=== PATIENT | male | born 1955 | race Caucasian/White ===

== ENCOUNTER 2018-04-19 16:50 | Inpatient (IN) ==
[2018-04-19] MEDS ORDERED: Sod Chloride 0.9% Inj 1,000 ML IV.CONT SCH (21:15)
--- NOTE | 2018-04-19 21:20 | ED ---
HPI General Chief complaint: Weakness Stated complaint: L arm/leg weakness Time Seen by Provider: 04/19/18 21:09 Source: patient Mode of arrival: ambulatory Limitations: no limitations History of Present Illness HPI narrative: The patient is a 62 year old male who presents to the [facility] emergency department with a history of reportedly developing intermittent left-sided weakness since March 17. He reports that he was admitted to the [facility] for evaluation and treatment. He reports that he underwent CT scans as well as MRIs of the head and neck. He reports that he was told that he did not have a stroke, however he reports that in January when he was experiencing vision changes and spots before his eyes he was also admitted to that facility and had an MRI done that showed an older stroke. The patient reports that he had been taking an aspirin daily and this was switched to Plavix on March 17. He was told that he would need to follow- up with a neurologist as an outpatient for further evaluation, however he reports that he does not have insurance and has not been able to get an appointment. He reports that he is followed by pending sale to [facility] and the physician and nurse through them. He reports that they were attempting to arrange outpatient follow-up with a neurologist, however today they recommended that he follow-up at another emergency department for a second opinion regarding his symptoms. The patient reports that 2 days after being discharged from the hospital, on approximately March 19 he began to have constant left upper and left lower extremity weakness associated with numbness and tingling. The patient reports that he does have a history of hypertension, hyperlipidemia , prior history of stroke without residual symptoms, and diabetes mellitus. His primary care physician is Dr. Hester. The patient's only other new symptom recently has been a tingling sensation in the left side of his chest that at times ago and has been coming and going. He denies having any chest pain or chest pressure. He denies having any shortness of breath. He denies any prior history of irregular heartbeat. He reports that he has had intermittent loose stools, however he reports that this began after he started metformin 6 months ago. On review of systems otherwise, the patient denies having any congestion, neck pain, abdominal pain, vomiting, urinary symptoms, double vision, vertigo, facial droop, difficulty with word finding ability, or other new weakness. Related Data Home Medications Medication Instructions Recorded Confirmed atorvastatin 40 mg PO DAILY 04/19/18 04/19/18 carvedilol 6.25 mg PO BID 04/19/18 04/19/18 clopidogrel [Plavix] 75 mg PO DAILY 04/19/18 04/19/18 glipizide 5 mg PO BID 04/19/18 04/19/18 lisinopril 40 mg PO DAILY 04/19/18 04/19/18 metformin 1,000 mg PO BID 04/19/18 04/19/18 Allergies Allergy/AdvReac Type Severity Reaction Status Date / Time No Known Allergies Allergy Verified 04/19/18 17:03 Review of Systems ROS: all other systems reviewed are negative PMFSH Social History Social History Substance History: No History of Abuse Smoking Status: Former smoker Smoking End Date: 20 years ago How Often Do You Have a Drink Containing Alcohol: 2 to 4 times a month Recent Travel in [facility] within the Last 8 Weeks: No Recent Out of Country Travel within the Last 8 Weeks: No Exam Const General: cooperative, no acute distress and well developed Nutritional Appearance: well nourished Orientation: alert, awake and oriented x3 HENMT Head: normocephalic and atraumatic Nose: no nasal discharge and no epistaxis Mouth: moist mucous membranes Teeth and gingiva: other (Patient has been poor dentition, multiple missing teeth) Throat: posterior oropharynx normal and uvula midline Eyes Sclera: normal sclerae Pupils: PERRL Neck Neck: no meningeal signs, trachea midline and no JVD Resp Effort & Inspection: no use of accessory muscles Auscultation: clear to auscultation bilaterally Cardio Rate: regular rate Rhythm: regular rhythm Heart Sounds: no murmurs GI Inspection: non-distended Palpation: soft, no hepatosplenomegaly, no guarding, not rigid and nontender Auscultation: normal bowel sounds Back/Spine/Pelvis Back: no CVA tenderness Skin General: dry skin (warm) Neuro General: alert, awake and oriented x3 Cranial Nerves: CN's II-XI intact bilaterally Speech: speech normal Motor: no movement abnormalities noted and strength abnormal (Strength is 5/5 in the right upper and right lower extremity, strength is 4/5 in the left upper and left lower extremity.) Sensory Exam: other (The patient reports having diminished sensation in the left upper and left lower extremity on examination compared to the right.) Extrem General: normal to inspection (2+ pulses in all 4 extremities), no calf tenderness, no clubbing, no cyanosis and no edema Psych Mood: congruent mood Affect: normal affect Judgment: judgment good Course Consultations Consultation #1: The patient's case including history, pertinent physical examination findings, and laboratory studies were discussed with Dr. Mojica, the neurologist. It was agreed that the patient would be admitted to the hospitalist service. He recommended that the patient be switched from Plavix to Aggrenox. Time: 23:37 Initial Documented Vital Signs Temperature 97.9 F 04/19/18 17:00 Pulse Rate 67 04/19/18 17:00 Respiratory Rate 18 04/19/18 17:00 Blood Pressure 223/116 H 04/19/18 17:00 Pulse Oximetry 99 04/19/18 17:00 Last Documented Vital Signs Temperature 97.9 F 04/19/18 17:00 Pulse Rate 83 04/19/18 21:28 Respiratory Rate 18 04/19/18 21:18 Blood Pressure 216/106 H 04/19/18 21:28 Pulse Oximetry 99 04/19/18 17:00 Medical Decision Making MDM Narrative Medical decision making narrative: During the course of the patient's emergency department visit, the patient's history, examination, and differential diagnosis were reviewed with the patient. The patient was placed on a cardiac tech with oximetry and frequent blood pressure monitoring. The patient had IV access obtained and blood work sent for analysis. Diagnostic evaluation was started regarding this patient's left upper and left lower extremity weakness associated with numbness and tingling to the left upper and left lower extremity. The patient was initially provided normal saline at 70 mL/h. CT scan of the brain has been ordered to rule out hemorrhage, however an MRI has also been ordered to evaluate for possible underlying stroke. The patient does not meet criteria for an acute stroke alert due to the onset of symptoms being 2-3 weeks ago. The patient was noted to be hypertensive on arrival with a blood pressure on repeat evaluation that was repeatedly sustained around 216/106. Due to the concern for possible stroke, the patient will be given antihypertensive medications. Labetalol is on back order at this facility, therefore a Cardene drip was started to gently lower the patient's blood pressure less than 185/110. The patient's diagnostic evaluations are remarkable for a white count of 10.6, hemoglobin 12.8, platelets 299 with eosinophils 4.5, PT 11.2, PTT is 25.9, chemistries remarkable for BUN of 28, GFR 64, glucose 165, AST is 11, cardiac enzymes within normal limits. Chest x-ray shows no acute cardiopulmonary disease, CT scan of the brain shows no acute intracranial abnormality. MRI of the brain without contrast revealed a lacunar infarct in the right brainstem, right maxillary sinus disease. The patient's case was discussed with Dr. Mojica, the neurologist senior environmental engineer who recommended that the patient have his Plavix discontinued and instead be started on Aggrenox. The patient's case including history, pertinent physical examination findings, and laboratory studies were discussed with Dr. Nichols. It was agreed that the patient would be admitted to the hospitalist service. The patient's results were discussed with the patient, including the plan of care. I explained that further testing and/ or monitoring is indicated based on the patient's history, examination, and/ or laboratory findings. Therefore, I recommended admission for additional evaluation. The patient expressed understanding and was agreeable with this plan. The patient was admitted to the hospital in guarded condition and sent to a bed under the care of the [facility] service. Medical Screen Exam Complete: Yes Emergency Medical Condition: Yes Differential Diagnosis Differential Diagnosis: Ischemic stroke, versus hemorrhagic stroke, versus other neurologic disorders such as multiple sclerosis, Lyme disease Medical Records Medical records reviewed: Yes I reviewed the patient's medical records. Lab Data Lab results reviewed: Yes I reviewed the patient's lab results. Result diagrams: 04/19/18 21:20 04/19/18 21:20 Lab Results 04/19/18 04/19/18 04/19/18 Range/Units 21:20 21:20 21:20 WBC 10.6 (4.0-11.0) th/mm3 RBC 4.57 (4.50-5.90) mil/mm3 Hgb 12.8 L (13.0-17.0) gm/dL Hct 37.1 L (39.0-51.0) % MCV 81.3 (80.0-100.0) fL MCH 28.0 (27.0-34.0) pg MCHC 34.4 (32.0-36.0) % RDW 14.9 (11.6-17.2) % Plt Count 299 (150-450) th/mm3 MPV 8.7 (7.0-11.0) fL Neut % (Auto) 55.9 (16.0-70.0) % Lymph % (Auto) 30.1 (9.0-44.0) % [place] % (Auto) 7.4 (0.0-8.0) % Eos % (Auto) 4.5 H (0.0-4.0) % Baso % (Auto) 2.1 H (0.0-2.0) % Neut # (Auto) 5.9 (1.8-7.7) th/mm3 Lymph # (Auto) 3.2 (1.0-4.8) th/mm3 [place] # (Auto) 0.8 (0.0-0.9) th/mm3 Eos # (Auto) 0.5 H (0.0-0.4) th/mm3 Baso # (Auto) 0.2 (0.0-0.2) th/mm3 WBC Differential . Differential Comment Auto diff final PT 11.2 (9.8-11.6) sec INR 1.1 Ratio APTT 25.9 (23.4-31.7) sec Sodium 137 (136-145) meq/L Potassium 4.4 (3.5-5.1) meq/L Chloride 102 (98-107) meq/L Carbon Dioxide 28.8 (21.0-32.0) meq/L Anion Gap 6 (5-15) meq/L BUN 28 H (7-18) mg/dL Creatinine 1.16 (0.60-1.30) mg/dL Estimated GFR 64 L (>89) mL/min POC Glucose (68-110) mg/dl Random Glucose 165 H (74-106) mg/dL Calcium 8.8 (8.5-10.1) mg/dL Total Bilirubin 0.3 (0.2-1.0) mg/dL AST 11 L (15-37) U/L ALT 19 (12-78) U/L Alkaline Phosphatase 66 (45-117) U/L Total Creatine Kinase (39-308) U/L Troponin I (0.02-0.05) ng/mL Total Protein 8.0 (6.4-8.2) g/dL Albumin 3.5 (3.4-5.0) g/dL 04/19/18 04/19/18 Range/Units 21:20 21:22 WBC (4.0-11.0) th/mm3 RBC (4.50-5.90) mil/mm3 Hgb (13.0-17.0) gm/dL Hct (39.0-51.0) % MCV (80.0-100.0) fL MCH (27.0-34.0) pg MCHC (32.0-36.0) % RDW (11.6-17.2) % Plt Count (150-450) th/mm3 MPV (7.0-11.0) fL Neut % (Auto) (16.0-70.0) % Lymph % (Auto) (9.0-44.0) % [place] % (Auto) (0.0-8.0) % Eos % (Auto) (0.0-4.0) % Baso % (Auto) (0.0-2.0) % Neut # (Auto) (1.8-7.7) th/mm3 Lymph # (Auto) (1.0-4.8) th/mm3 [place] # (Auto) (0.0-0.9) th/mm3 Eos # (Auto) (0.0-0.4) th/mm3 Baso # (Auto) (0.0-0.2) th/mm3 WBC Differential Differential Comment PT (9.8-11.6) sec INR Ratio APTT (23.4-31.7) sec Sodium (136-145) meq/L Potassium (3.5-5.1) meq/L Chloride (98-107) meq/L Carbon Dioxide (21.0-32.0) meq/L Anion Gap (5-15) meq/L BUN (7-18) mg/dL Creatinine (0.60-1.30) mg/dL Estimated GFR (>89) mL/min POC Glucose 154 H (68-110) mg/dl Random Glucose (74-106) mg/dL Calcium (8.5-10.1) mg/dL Total Bilirubin (0.2-1.0) mg/dL AST (15-37) U/L ALT (12-78) U/L Alkaline Phosphatase (45-117) U/L Total Creatine Kinase 93 (39-308) U/L Troponin I Less than 0.02 L (0.02-0.05) ng/mL Total Protein (6.4-8.2) g/dL Albumin (3.4-5.0) g/dL Imaging Data Attestation: I personally reviewed and interpreted this imaging study as follows : Radiologist's impression: Head MRI 04/19/18 21:09 CONCLUSION: 1. Lacunar infarct right brainstem. 2. Right maxillary sinus disease. Chest X-Ray 04/19/18 21:10 CONCLUSION: No acute cardiopulmonary disease Head CT 04/19/18 21:10 CONCLUSION: 1. No acute intracranial abnormality . ECG Data Attestation: I personally reviewed and interpreted this ECG as follows: Interpretation: The patient had an EKG done on arrival. The patient's EKG reveals a sinus rhythm heart rate of 70, QRS duration 97 ms, QTC 406 ms, no acute ST segment elevation. T waves are inverted in V1. Discharge Plan Discharge Disposition Patient Disposition: ED Admit(ED Internal Use Only) Discharge Order Discharge Orders: ED Use Only Admit Order (Routine); Ordered 04/19/18 Ordered By: Miriam Hector Discharge Details Diagnosis: Brainstem infarction Physicians Team ED Provider: Miriam Hector Primary Care Provider: Yobany Hester Rxs /Orders / Referrals /Forms Prescriptions: No Action atorvastatin 40 mg Tablet 40 mg PO DAILY RF: 0 carvedilol 6.25 mg Tablet 6.25 mg PO BID RF: 0 clopidogrel [Plavix] 75 mg Tablet 75 mg PO DAILY RF: 0 metformin 1,000 mg Tablet 1,000 mg PO BID RF: 0 lisinopril 40 mg Tablet 40 mg PO DAILY RF: 0 glipizide 5 mg Tablet 5 mg PO BID RF: 0 Status ED Status: In Room
[2018-04-19 21:29] LABS: Baso # (Auto) 0.2 th/mm3 (0.0-0.2); Baso % (Auto) 2.1 % (0.0-2.0); Eos # (Auto) 0.5 th/mm3 (0.0-0.4); Eos % (Auto) 4.5 % (0.0-4.0); Hematocrit 37.1 % (39.0-51.0); Hemoglobin 12.8 gm/dL (13.0-17.0); Lymph # (Auto) 3.2 th/mm3 (1.0-4.8); Lymph % (Auto) 30.1 % (9.0-44.0); Mean Corpuscular HGB Conc 34.4 % (32.0-36.0); Mean Corpuscular Volume 81.3 fL (80.0-100.0); Mean Platelet Volume 8.7 fL (7.0-11.0); Mono # (Auto) 0.8 th/mm3 (0.0-0.9); Mono % (Auto) 7.4 % (0.0-8.0); Neut # (Auto) 5.9 th/mm3 (1.8-7.7); Neut % (Auto) 55.9 % (16.0-70.0); Platelet Count 299 th/mm3 (150-450); Red Blood Count 4.57 mil/mm3 (4.50-5.90); Red Cell Distribution Width 14.9 % (11.6-17.2); White Blood Count 10.6 th/mm3 (4.0-11.0)
[2018-04-19] MEDS ORDERED: niCARdipine Inj 25 MG in Sodium Chlor 0.9% Inj 240 ML IV.CONT PRN (21:29)
--- NOTE | 2018-04-19 21:38 | XR ---
EXAM DATE: 04/19/2018 9:35 PM EST AGE/SEX: 62 years / Male INDICATIONS: Cough, left arm and leg numbness. CLINICAL DATA: This is the patient's initial encounter. Patient reports that signs and symptoms have been present for 1 day and indicates a pain score of 0/10. MEDICAL/SURGICAL HISTORY: Hypertension. None. COMPARISON: No prior exams available for comparison. FINDINGS: A single AP view of the chest demonstrates the lungs to be symmetrically aerated without evidence of mass, infiltrate or effusion. The cardiomediastinal contours are unremarkable. Osseous structures a re intact. CONCLUSION: No acute cardiopulmonary disease Electronically signed by: Thiago Griffin MD 04/19/2018 9:36 PM EST
[2018-04-19 21:39] LABS: Activated Partial Thrombo Time 25.9 sec (23.4-31.7); INR 1.1 Ratio; Prothrombin Time 11.2 sec (9.8-11.6)
[2018-04-19 22:00] LABS: Alanine Aminotransferase 19 U/L (12-78); Albumin 3.5 g/dL (3.4-5.0); Anion Gap 6 meq/L (5-15); Aspartate Aminotransferase 11 U/L (15-37); Blood Urea Nitrogen 28 mg/dL (7-18); Calcium 8.8 mg/dL (8.5-10.1); Carbon Dioxide 28.8 meq/L (21.0-32.0); Chloride 102 meq/L (98-107); Glomerular Filtration Rate 64 mL/min (>89); Glucose,Random 165 mg/dL (74-106); Potassium 4.4 meq/L (3.5-5.1); Sodium 137 meq/L (136-145)
--- NOTE | 2018-04-19 22:01 | CT ---
EXAM DATE: 04/19/2018 9:58 PM EST AGE/SEX: 62 years / Male INDICATIONS: Left side weakness, tingling in left hand and foot. CLINICAL DATA: This is the patient's initial encounter. Patient reports that signs and symptoms have been present for 1 month and indicates a pain score of 0/10. MEDICAL/SURGICAL HISTORY: Hypertension. Diabetes. None. RADIATION DOSE: 49.54 CTDI (mGy) COMPARISON: No prior exams available for comparison. TECHNIQUE: CT of the head without contrast. Using automated exposure control and adjustment of the mA and/or kV according to patient size, radiation dose was kept as low as reasonably achievable to ob tain optimal diagnostic quality images. DICOM format image data is available electronically for revi ew and comparison. FINDINGS: Cerebrum: The ventricles are normal for age. No evidence of midline shift, mass lesion, hemorrhage or acute infarction. No extraaxial fluid collections are seen. Posterior Fossa: The cerebellum and brainstem are intact. The 4th ventricle is midline. The cerebe llopontine angle is unremarkable. Extracranial: The visualized portion of the orbits is intact. Skull: The calvaria is intact. No evidence of skull fracture. CONCLUSION: 1. No acute intracranial abnormality . Electronically signed by: Thiago Griffin MD 04/19/2018 10:00 PM EST
[2018-04-19 22:03] LABS: Alkaline Phosphatase 66 U/L (45-117)
[2018-04-19 22:07] LABS: Creatine Kinase 93 U/L (39-308)
--- NOTE | 2018-04-19 22:37 | MR ---
EXAM DATE: 04/19/2018 10:32 PM EST AGE/SEX: 62 years / Male INDICATIONS: CVA. Left side weakness. CLINICAL DATA: This is the patient's initial encounter. Patient reports that signs and symptoms have been present for 1 day and indicates a pain score of 0/10. MEDICAL/SURGICAL HISTORY: Diabetes mellitus type II. Hypertension. . Bilateral lower extremity veins. COMPARISON: [facility], CT HEAD W/O CONTRAST, 04/19/2018. . TECHNIQUE: Multiplanar, multisequence examination of the brain was performed without contrast. FINDINGS: Cerebrum: The ventricles are normal for age. No evidence of midline shift, mass lesion, hemorrhage or acute infarction. No extraaxial fluid collections are seen. The pituitary gland and suprasellar cistern are normal in configuration. White Matter: No significant signal abnormalities are seen in the white matter. Posterior Fossa: The cerebellum is intact. Focal area of high FLAIR abnormality in the right brainste m The 4th ventricle is midline. The cerebellopontine angle is unremarkable. The cerebellar tonsils are normal in position. Diffusion Imaging: Punctate restricted diffusion seen in the right brainstem consistent with acute i schemia. Extracranial: The visualized portions of the orbits and paranasal sinuses are unremarkable. CONCLUSION: 1. Lacunar infarct right brainstem. 2. Right maxillary sinus disease. Electronically signed by: Thiago Griffin MD 04/19/2018 10:36 PM EST
[2018-04-19] MEDS ORDERED: Dextrose 50% in Water 50 ML Vial IV.PUSH PRN (23:49)
[2018-04-20] MEDS: Enoxaparin Inj 40 MG/0.4 ML Syringe SQ SCH ×2 (00:18→00:51)
[2018-04-20 06:47] LABS: Chol/HDL Ratio 5.43 Ratio; HDL Cholesterol 32.4 mg/dL (40.0-60.0)
--- NOTE | 2018-04-20 09:39 | US ---
EXAM DATE: 04/20/2018 9:31 AM EST AGE/SEX: 62 years / Male INDICATIONS: Lacunar infarct right brainstem. Left side weakness. CLINICAL DATA: This is the patient's initial encounter. Patient reports that signs and symptoms have been present for 1 month and indicates a pain score of 0/10. MEDICAL/SURGICAL HISTORY: Diabetes. Hypertension. Hyperlipidemia. Stroke. Plavix therapy. . COMPARISON: No prior exams available for comparison. VELOCITY PARAMETERS: ICA/CCA Ratio: Right 0.9 , Left 1.4 ICA: Right 75 cm/sec, Left 82 cm/sec CCA: Right 80 cm/sec, Left 58 cm/sec ECA: Right 90 cm/sec, Left 144 cm/sec Vertebral: Right 47 cm/sec antegrade, Left 33 cm/sec antegrade FINDINGS: Right Carotid: No significant plaque is visualized.The waveforms are within normal limits. Left Carotid: No significant plaque is visualized. The waveforms are within normal limits. Other: None. CONCLUSION: Negative for hemodynamically significant carotid stenosis Electronically signed by: Micky Mak MD 04/20/2018 9:38 AM EST
[2018-04-20] MEDS ORDERED: Gadobutrol PF 10 MMOL/10 ML Vial (for RAD) IV.SIG ONE (10:15)
[2018-04-20] MEDS ORDERED: Dextrose 50% in Water 50 ML Vial IV.PUSH PRN (10:27)
--- NOTE | 2018-04-20 10:28 | P.HPIM ---
History of Present Illness Service: Hospitalist Primary Care Physician: Yobany Hester History of Present Illness: Mr. Kent is a pleasant 62-year-old male with a history of diabetes mellitus, hypertension who presents to the emergency department due to left-sided upper and lower extremity weakness as well as left- sided chest tingling sensation. On March 14, patient started having left upper and lower extremity weakness which lasted about 1 hour. He had off-and- on symptoms for couple of days and then he started having persistent left upper and lower extremity weakness. He went to [facility] where he underwent imaging studies which apparently did not show any acute stroke. He was discharged on Plavix but patient reports that he has not been taking Plavix regularly. 2 days prior to this admission, patient also started having some left chest tingling sensation as well as persistent left upper and lower extremity weakness. His left-sided weakness did not get any worse but remained somewhat stable. Is able to walk but drags his left foot. He denies any abdominal pain, fever or chills. No cough. No changes in bowel or bladder habits. Past medical history: Hypertension, diabetes mellitus Past surgical history: Varicose vein surgery of the left leg Social history: Drinks alcohol occasionally. Denies using tobacco or illicit drugs Family history: Father likely had a stroke and mother with diabetes mellitus and hypertension. Inpatient Certification Inpatient Certification: I certify that the inpatient services were ordered in accordance with Medicare regulations governing the order. This includes certification that hospital inpatient services are reasonable and necessary and in the case of services not specified as inpatient-only under 42 CFR 419.22(n), that they are appropriately provided as inpatient services in accordance to with the 2-midnight benchmark under 43 CFR 412.3(e) Estimated Total Length of Stay (Days): 2 Plans for Post Hospital Care: Home Review of Systems Review of Systems: all other systems reviewed are negative [facility] Social History Social History Substance History: No History of Abuse Second Hand Smoke Exposure: No Smoking Status: Former smoker Tobacco Type: Cigarettes Smoking End Date: 20 years ago How Often Do You Have a Drink Containing Alcohol: 2 to 4 times a month Recent Travel in [facility] within the Last 8 Weeks: No Recent Out of Country Travel within the Last 8 Weeks: No Immunization History Tetanus Immunization: Unsure Hx Influenza Vaccine This Season: No Medications and Allergies Allergies Allergy/AdvReac Type Severity Reaction Status Date / Time No Known Allergies Allergy Verified 04/19/18 17:03 Home Medications Medication Instructions Recorded Confirmed Type atorvastatin 40 mg PO DAILY 04/19/18 04/19/18 History carvedilol 6.25 mg PO BID 04/19/18 04/19/18 History clopidogrel [Plavix] 75 mg PO DAILY 04/19/18 04/19/18 History glipizide 5 mg PO BID 04/19/18 04/19/18 History lisinopril 40 mg PO DAILY 04/19/18 04/19/18 History metformin 1,000 mg PO BID 04/19/18 04/19/18 History Active Medications: Active Medications Dextrose (D50w Vial) 50 ml IV.PUSH UNSCH PRN PRN Reason: PER HYPOGLYCEMIA PROTOCOL Dipyridamole/Aspirin (Aggrenox) 1 cap PO BID [facility] Last Admin: 04/20/18 08:46 Dose: 1 cap Enalaprilat (Vasotec Inj) 1.25 mg IV.PUSH Q4H PRN PRN Reason: For SBP > 220 or DBP > 120 Glucagon (Glucagon Inj) 1 mg OTHER UNSCH PRN PRN Reason: for Hypoglycemia Protocol Sodium Chloride (Ns Inj) 1,000 mls @ 70 mls/hr IV.CONT .[id number] [facility] Stop: 04/20/18 11:32 Last Admin: 04/20/18 02:17 Dose: 70 mls/hr Nicardipine HCl 25 mg/ Sodium (Chloride) 250 mls @ 50 mls/hr IV.CONT TITRATE PRN; Protocol PRN Reason: Per Protocol Last Titration: 04/20/18 00:40 Dose: 0 mg/hr, 0 mls/hr Sodium Chloride (Ns Flush) 2 ml IV.FLUSH BID [facility] Last Admin: 04/20/18 08:47 Dose: 2 ml Sodium Chloride (Ns Flush) 2 ml IV.FLUSH PRN PRN PRN Reason: FLUSH AFTER USING IV ACCESS Physical Exam Vital signs: Last Vital Signs Temp 98.0 F 04/20/18 08:00 Pulse 67 04/20/18 10:00 Resp 15 04/20/18 10:00 BP 198/100 H 04/20/18 09:45 Pulse Ox 98 04/20/18 10:00 Intake & Output 04/18/18 04/19/18 04/20/18 04/21/18 06:59 06:59 06:59 06:59 Intake Total 0 / 0 Balance 0 / 0 Weight 85.7 kg GENERAL: This is a well-nourished, well-developed patient, in no apparent distress. SKIN: No rashes, ecchymoses or lesions. Warm and dry. HEAD: Atraumatic. Normocephalic. No temporal or scalp tenderness. EYES: Pupils equal round and reactive. No injection or drainage. ENT: Nose without bleeding, purulent drainage or septal hematoma. Airway patent. NECK: Trachea midline. No lymphadenopathy. Supple, nontender, no meningeal signs. CARDIOVASCULAR: Regular rate and rhythm without murmurs, gallops, or rubs. No JVD. RESPIRATORY: Clear to auscultation. Breath sounds equal bilaterally. No wheezes , rales, or rhonchi. GASTROINTESTINAL: Abdomen soft, non-tender, nondistended. No guarding. MUSCULOSKELETAL: Extremities without clubbing, cyanosis, or edema. NEUROLOGICAL: Awake and alert. Cranial nerves II through XII intact. Left upper extremity and lower extremity weakness around 3/5, right-sided extremities 5 out of 5. Normal speech. Results Labs CBC & Chem 7: 04/19/18 21:20 04/19/18 21:20 Imaging Impressions Head MRI 04/19/18 21:09 CONCLUSION: 1. Lacunar infarct right brainstem. 2. Right maxillary sinus disease. Chest X-Ray 04/19/18 21:10 CONCLUSION: No acute cardiopulmonary disease Head CT 04/19/18 21:10 CONCLUSION: 1. No acute intracranial abnormality . Carotid Doppler Study 04/20/18 00:00 CONCLUSION: Negative for hemodynamically significant carotid stenosis Caprini VTE Risk Assessment Caprini VTE Risk Assessment: Moderate/High Risk (score >= 2) Caprini Risk Assessment Model: Point Value = 1 Point Value = 2 Point Value = 3 Point Value = 5 Age 41-60 Minor surgery BMI > 25 kg/m2 Swollen legs Varicose veins or History of unexplained or recurrent spontaneous Oral contraceptives or hormone replacement Sepsis (< 1 month) Serious lung disease, including pneumonia (< 1 month) Abnormal pulmonary function Acute myocardial infarction Congestive heart failure (< 1 month) History of inflammatory bowel disease Medical patient at bed rest Age 61-74 Arthroscopic surgery Major open surgery (> 45 min) Laparoscopic surgery (> 45 min) Malignancy Confined to bed (> 72 hours) Immobilizing plaster cast Central venous access Age >= 75 History of VTE Family history of VTE Factor V Leiden Prothrombin [id number] Lupus anticoagulant Anticardiolipin antibodies Elevated serum homocysteine Heparin-induced thrombocytopenia Other congenital or acquired thrombophilia Stroke (< 1 month) Elective arthroplasty Hip, pelvis, or leg fracture Acute spinal cord injury (< 1 month) Prophylaxis Regimen: Total Risk Factor Score Risk Level Prophylaxis Regimen 0-1 Low Early ambulation 2 Moderate Order ONE of the following: *Sequential Compression Device (SCD) *Heparin 5000 units SQ BID 3-4 Higher Order ONE of the following medications: *Heparin 5000 units SQ TID *Enoxaparin/Lovenox 40 mg SQ daily (WT < 150 kg, CrCl > 30 mL/min) *Enoxaparin/Lovenox 30 mg SQ daily (WT < 150 kg, CrCl > 10-29 mL/min) *Enoxaparin/Lovenox 30 mg SQ BID (WT < 150 kg, CrCl > 30 mL/min) AND/OR *Sequential Compression Device (SCD) 5 or more Highest Order ONE of the following medications: *Heparin 5000 units SQ TID (Preferred with Epidurals) *Enoxaparin/Lovenox 40 mg SQ daily (WT < 150 kg, CrCl > 30 mL/min) *Enoxaparin/Lovenox 30 mg SQ daily (WT < 150 kg, CrCl > 10-29 mL/min) *Enoxaparin/Lovenox 30 mg SQ BID (WT < 150 kg, CrCl > 30 mL/min) AND *Sequential Compression Device (SCD) Assessment and Plan Plan Mr. Kent is a pleasant 62-year-old male with a history of hypertension, diabetes mellitus who presents to the emergency department due to almost 1 month long left-sided upper and lower extremity weakness as well as new symptoms of left sided chest tingling sensation. Patient was worked up at an outside facility [facility]. Apparently imaging studies did not show any stroke. He was placed on Plavix which he has not been taking regularly. At [facility], patient underwent CT head as well as MRI. MRI shows brainstem stroke. Acute brainstem stroke Neurology consulted. Discussed with neurologist. Will order MRI brain with [place] without contrast as well as MRA neck with contrast We will wait for further recommendations from neurologist. However, we can probably start controlling patient's blood pressure. Patient is currently on Aggrenox per on-call neurologist recommendation. We will consider aspirin and Plavix instead of Aggrenox. We will obtain PT and OT consult. Hypertension Diabetes mellitus We will wait for neurologist recommendations. However we can likely start controlling blood pressure. If okay with neurology, will start patient on calcium channel jason as well as ARB. We will start patient on sliding scale insulin. Goal blood glucose [id number]. If needed will start patient on long-acting insulin as well. Full code. Lovenox. H&P: Quality VTE Deep Vein Thrombosis/Pulmonary Embolism Present on Admission: No
[2018-04-20] MEDS: Insulin NovoLOG Aspart Correctional Sugar Inj SQ SCH ×3 (12:53→20:27)
--- NOTE | 2018-04-20 12:58 | MR ---
EXAM DATE: 04/20/2018 12:33 PM EST AGE/SEX: 62 years / Male INDICATIONS: Left sided weakness. CLINICAL DATA: This is the patient's subsequent encounter. Patient reports that signs and symptoms h ave been present for 2 days and indicates a pain score of 0/10. MEDICAL/SURGICAL HISTORY: Hypertension. Diabetes mellitus type II. . leg vein surgery COMPARISON: [facility], MR HEAD W/O CONTRAST, 04/19/2018. . TECHNIQUE: 3D mesa-sd-ladrct MRA was performed. Source images, multiplanar STS MIP, and 3D volum e MIP reconstructions were reviewed. FINDINGS: There is excellent visualization of the major intracranial arteries out to the second-order branch ve ssels. There is a focal stenosis junction mid M1 branch of the right middle cerebral artery. This cou ld be confirmed by CT angiography. The left vertebral is small and diminutive ending in PICA. CONCLUSION: 1. Negative for major branch vessel occlusion. 2. Possible mid right MCA stenosis. Electronically signed by: Micky Mak MD 04/20/2018 12:57 PM EST
--- NOTE | 2018-04-20 13:12 | MR ---
EXAM DATE: 04/20/2018 12:33 PM EST AGE/SEX: 62 years / Male INDICATIONS: Left sided weakness. CLINICAL DATA: This is the patient's subsequent encounter. Patient reports that signs and symptoms h ave been present for 2 days and indicates a pain score of 0/10. MEDICAL/SURGICAL HISTORY: Hypertension. Diabetes mellitus type II. . leg vein surgery COMPARISON: . TECHNIQUE: 10 ml Gadavist (gadobutrol) contrast infused MRA (single exam dose) of the extracranial circulation was performed using a neurovascular coil. Postprocessing was performed, including rotati ng sub-volume maximum intensity projections of each carotid artery, rotating full-volume maximum inte nsity projections of both carotid arteries, sagittal and coronal sliding thin-slab reformations of ea ch carotid artery, and left oblique sliding thin-slab reformation through the aortic arch to include the origin of the arch branch vessels. FINDINGS: Aortic Arch : There is a three-vessel origin of the great vessels from the aorta. No evidence of o stial narrowing. Right Carotid : The common carotid artery is intact. The carotid bulb has a normal configuration wi thout ulceration or narrowing. The internal carotid artery lumen is smooth without stenosis. The ex ternal carotid artery is intact. Left Carotid : The common carotid artery is intact. The carotid bulb has a normal configuration wit hout ulceration or narrowing. The internal carotid artery lumen is smooth without stenosis. The ext ernal carotid artery is intact. Vertebrals : The right vertebral is small, diminutive ending in PICA. CONCLUSION: 1. Negative for hemodynamically significant carotid stenosis. 2. Small right vertebral artery. Percent stenosis is calculated using the diameter of the stenotic region over the diameter of the nor mal distal internal carotid artery Electronically signed by: Micky Mak MD 04/20/2018 1:10 PM EST
--- NOTE | 2018-04-20 13:45 | ECHRPT ---
Indication: CVA/TIA CONCLUSIONS Normal left ventricular size. Mild concentric left ventricular hypertrophy. The left ventricular systolic function is normal with an estimated ejection fraction in the range of 60-65%. Trace mitral valve regurgitation. The estimated pulmonary arterial pressure is 28 mmHg. BP: / HR: Rhythm: MEASUREMENTS (Male / Female) Normal Values Technical Quality: 2D ECHO LV Diastolic Diameter PLAX 4.3 cm 4.2 - 5.9 / 3.9 - 5.3 cm LV Systolic Diameter PLAX 3.3 cm IVS Diastolic Thickness 1.3 cm 0.6 - 1.0 / 0.6 - 0.9 cm LVPW Diastolic Thickness 1.6 cm 0.6 - 1.0 / 0.6 - 0.9 cm LV Relative Wall Thickness 0.7 RV Internal Dim ED PLAX 2.8 cm LVOT Diameter 2.1 cm Aortic Root Diameter 2.8 cm LA Systolic Diameter LX 3.2 cm 3.0 - 4.0 / 2.7 - 3.8 cm LV Ejection Fraction MOD BP 65.8 % >= 55 % LV Ejection Fraction MOD 4C 62.2 % LV Ejection Fraction 4C AL 63.8 % LV Ejection Fraction MOD 2C 69.1 % LV Ejection Fraction 2C AL 70.0 % M-MODE Aortic Root Diameter MM 3.3 cm LA Systolic Diameter MM 4.5 cm LA Ao Ratio MM 1.4 AV Cusp Separation MM 1.4 cm DOPPLER AV Peak Velocity 153.0 cm/s AV Peak Gradient 9.4 mmHg LVOT Peak Velocity 112.0 cm/s LVOT Peak Gradient 5.0 mmHg AV Area Cont Eq pk 2.5 cm Mitral E Point Velocity 70.7 cm/s Mitral A Point Velocity 100.0 cm/s Mitral E to A Ratio 0.7 LV E' Lateral Velocity 5.0 cm/s Mitral E to LV E' Lateral Ratio 14.2 LV E' Septal Velocity 4.0 cm/s Mitral E to LV E' Septal Ratio 17.7 TR Peak Velocity 212.0 cm/s TR Peak Gradient 18.0 mmHg Right Atrial Pressure 10.0 mmHg Pulmonary Artery Systolic Pressu 28.0 mmHg Right Ventricular Systolic Press 28.0 mmHg PV Peak Velocity 95.0 cm/s PV Peak Gradient 3.6 mmHg FINDINGS LEFT VENTRICLE Normal left ventricular size. Mild concentric left ventricular hypertrophy. The left ventricular systolic function is normal with an estimated ejection fraction in the range of 60-65%. RIGHT VENTRICLE Normal right ventricular size and systolic function. LEFT ATRIUM The left atrial size is normal. RIGHT ATRIUM The right atrial size is normal. ATRIAL SEPTUM Normal atrial septal thickness without atrial level shunting by limited color doppler interrogation. AORTA The aortic root and proximal ascending aorta are normal in size on limited imaging. MITRAL VALVE Trace mitral valve regurgitation. AORTIC VALVE Trileaflet aortic valve. No aortic valve stenosis or regurgitation. TRICUSPID VALVE The estimated pulmonary arterial pressure is 28 mmHg. PULMONARY VALVE No pulmonary valve regurgitation or stenosis. VESSELS The inferior vena cava is normal in size. PERICARDIUM No pericardial effusion. Foster Gonzalez MD, FACC (Electronically Signed) Final Date:20 April 2018 13:44
[2018-04-20 15:40] LABS: Free T4 (Free Thyroxine) 1.06 ng/dL (0.76-1.46); Thyroid Stimulating Hormone 1.4 uIU/mL (0.358-3.740)
[2018-04-20 17:23] LABS: Hemoglobin A1c 6.6 % (4.3-6.0)
--- NOTE | 2018-04-20 22:23 | ECG ---
Date Performed: 04/19/2018 Time Performed: 21:17:22 PTAGE: 62 years EKG: Sinus rhythm MARKED LEFT AXIS DEVIATION MINIMAL VOLTAGE CRITERIA FOR LVH, CONSIDER NORMAL VARIANT ABNORMAL ECG NO PREVIOUS TRACING DOCTOR: Ralph Barron Interpretating Date/Time 04/20/2018 22:21:13
[2018-04-21] MEDS ORDERED: Sod Chloride 0.9% Inj 1,000 ML IV.CONT SCH (08:00)
--- NOTE | 2018-04-21 08:08 | MB ---
cc: Marbin Parrish MD DATE: 04/20/2018 HISTORY OF PRESENT ILLNESS: A 62-year-old right-handed man with hypertension, non-insulin diabetes, hypercholesterolemia. He was just in the hospital in [facility] about 03/15/2018 to 03/17/2018 and then he had some weakness on and off on the left side and then he seemed to get better and he went home and then the next day he got weak on the left side again and he has been weak ever since. Also, feels some numbness there. No chest pain or palpitations, or headache. No vision change or double vision and he did not go back in the hospital after he got weak ____. He tells me he has not had any new weakness since 03/17/2018, but he did have some tingling on his left chest and so he came in. No chest pain with that; however. He has been taking Plavix about every third day, 75 mg. He was admitted last night to the emergency room. MRI showed a brainstem infarct. REVIEW OF SYSTEMS: He denied any LA, stent, angioplasty, atrial fibrillation, Coumadin, renal, hepatic or pulmonary disease, thyroid disease, lupus, ulcer, cancer, prior stroke. SOCIAL HISTORY: Not a smoker, occasionally has a drink. Lives with his . FAMILY HISTORY: Positive for cancer in his brother. Negative for seizure or stroke. MEDICATIONS AT HOME: He was on: 1. Metformin. 2. Lisinopril. 3. Glipizide. 4. Plavix 75, but only taken every third day. . Carvedilol. 5. Atorvastatin. PHYSICAL EXAMINATION: VITAL SIGNS: Sinus rhythm here; 223/116-198/100. NECK: There are no carotid or vertebral bruits. HEART: Regular rhythm; I did not detect a murmur. NEUROLOGIC: Pupils are equal. Visual secalante are full. Extraocular movements intact without nystagmus. Face is symmetric with normal sensation. Tongue was midline. He had normal strength in right upper and lower extremity. Left upper extremity is about a 4+/5 on the triceps, 4-/5 on the finger extensors. Left lower extremity about 4+/5 throughout. DTRs are trace throughout. Toes downgoing bilaterally. Pinprick is diminished to the ankle bilaterally, but otherwise intact in the proximal lower extremities, arms and face bilaterally. He is not ataxic on [id number]. Speech is fluent. He is not aphasic. Hearing is diminished to finger rub bilaterally. He is hard of hearing at baseline. Discs I could not see well. His pupils are equal; however. LABORATORY DATA: CBC is normal. Basic metabolic profile was normal. Glucose 165. LFTs, troponin, CPK normal. LDL cholesterol is 113. Coags are normal. IMAGIN. Carotid ultrasound is read as negative. 2. CAT scan of the brain is read as normal. 3. MRI of the brain is read as a brainstem infarct. Review of the films; appears to have a very small right medullary infarct on the ____ tract, otherwise the diffusion is negative. He has got a lot of fluid in the right maxillary sinus. I do not see any old strokes on the FLAIR images; a little bit of white matter change in the left thalamus. The flow void appears he is right vertebral dominant, but we will need to get an MRA. IMPRESSION: An infarct about a month ago. It is okay to bring his blood pressure down now to 140/70 and I would, in about a week, get him down to 120/70. He needs to get his LDL less than 100. Whether the statin needs to be increased or whether he was not compliant is unclear. I would continue him on the Plavix 75 mg a day and make sure he takes it daily. We will check some additional blood work on home and an echocardiogram along with a Holter, although a lot of this workup was probably done over at [facility], but an echo and Holter has been ordered here. He could get up and out of bed. I would defer to the med team on the tingling on the left chest, probably not related to the stroke; however, he has been fairly stable with that. For now, I will stop the Aggrenox, put him on a baby aspirin and the Plavix a day; and the baby aspirin we can stop in a weeks time as an outpatient. MD RAPHAEL De La Torre/kelsey , 10:33 AM , 10:43 AM
--- NOTE | 2018-04-21 08:10 | P.PNNEU ---
Subjective Active Medications: Active Medications Aspirin (Aspirin Chew) 81 mg PO DAILY [facility] Last Admin: 04/20/18 12:53 Dose: 81 mg Atorvastatin Calcium (Lipitor) 40 mg PO HS [facility] Last Admin: 04/20/18 20:11 Dose: 40 mg Captopril (Capoten) 25 mg PO BID [facility] Last Admin: 04/20/18 20:11 Dose: 25 mg Clopidogrel Bisulfate (Plavix) 75 mg PO DAILY [facility] Last Admin: 04/20/18 12:53 Dose: 75 mg Dextrose (D50w Vial) 50 ml IV.PUSH UNSCH PRN PRN Reason: PER HYPOGLYCEMIA PROTOCOL Dextrose (D50w Vial) 50 ml IV.PUSH UNSCH PRN PRN Reason: PER HYPOGLYCEMIA PROTOCOL Enalaprilat (Vasotec Inj) 1.25 mg IV.PUSH Q4H PRN PRN Reason: For SBP > 220 or DBP > 120 Last Admin: 04/20/18 10:59 Dose: 1.25 mg Glucagon (Glucagon Inj) 1 mg OTHER UNSCH PRN PRN Reason: for Hypoglycemia Protocol Glucagon (Glucagon Inj) 1 mg OTHER PRN PRN PRN Reason: for Hypoglycemia Protocol Nicardipine HCl 25 mg/ Sodium (Chloride) 250 mls @ 50 mls/hr IV.CONT TITRATE PRN; Protocol PRN Reason: Per Protocol Last Titration: 04/20/18 00:40 Dose: 0 mg/hr, 0 mls/hr Sodium Chloride (Ns Inj) 1,000 mls @ 70 mls/hr IV.CONT .[id number] [facility] Insulin Aspart (Novolog Insulin Correctional Sugar Inj) 0 unit SQ ACHS [facility]; Protocol Last Admin: 04/20/18 20:27 Dose: 1 unit Nifedipine (Procardia Xl) 60 mg PO DAILY [facility] Last Admin: 04/20/18 12:53 Dose: 60 mg Sodium Chloride (Ns Flush) 2 ml IV.FLUSH BID [facility] Last Admin: 04/20/18 20:12 Dose: 2 ml Sodium Chloride (Ns Flush) 2 ml IV.FLUSH PRN PRN PRN Reason: FLUSH AFTER USING IV ACCESS Allergies/Adverse Reactions: Allergies Allergy/AdvReac Type Severity Reaction Status Date / Time No Known Allergies Allergy Verified 04/19/18 17:03 Physical Exam Vital signs: Vital Signs 04/20/18 08:03 04/20/18 08:15 04/20/18 08:45 Temperature Pulse Rate 71 73 Respiratory Rate 16 19 Blood Pressure 185/92 H 175/96 H Pulse Oximetry 96 97 04/20/18 09:00 04/20/18 09:15 04/20/18 09:45 Temperature Pulse Rate 68 67 67 Respiratory Rate 20 17 19 Blood Pressure 185/98 H 198/100 H Pulse Oximetry 98 97 97 04/20/18 10:00 04/20/18 10:01 04/20/18 10:15 Temperature Pulse Rate 67 67 69 Respiratory Rate 15 17 20 Blood Pressure 176/99 H 198/134 H Pulse Oximetry 98 97 98 04/20/18 10:20 04/20/18 10:45 04/20/18 11:03 Temperature Pulse Rate 73 69 71 Respiratory Rate 30 H 17 22 Blood Pressure 209/105 H 172/89 H Pulse Oximetry 99 97 99 04/20/18 11:24 04/20/18 11:53 04/20/18 12:00 Temperature 98.1 F Pulse Rate 69 68 67 Respiratory Rate 21 20 Blood Pressure 177/96 H Pulse Oximetry 99 97 04/20/18 12:01 04/20/18 13:00 04/20/18 13:02 Temperature Pulse Rate 68 70 Respiratory Rate 25 H 34 H Blood Pressure 175/96 H 189/99 H Pulse Oximetry 98 98 04/20/18 13:29 04/20/18 14:00 04/20/18 14:02 Temperature Pulse Rate 71 72 Respiratory Rate 23 18 Blood Pressure 171/92 H 164/89 H Pulse Oximetry 98 98 04/20/18 14:09 04/20/18 14:25 04/20/18 14:40 Temperature Pulse Rate 71 75 Respiratory Rate 31 H 22 Blood Pressure 168/95 H 194/95 H 181/91 H Pulse Oximetry 99 99 04/20/18 15:01 04/20/18 15:02 04/20/18 16:00 Temperature Pulse Rate 79 78 76 Respiratory Rate 36 H 35 H 15 Blood Pressure 151/79 H Pulse Oximetry 97 98 99 04/20/18 16:02 Temperature 98.1 F Pulse Rate Respiratory Rate Blood Pressure 118/73 Pulse Oximetry Intake & Output 04/20/18 04/21/18 04/21/18 18:59 06:59 18:59 Intake Total 1000 / 1000 Balance 1000 / 1000 Intake: IV 1000 / 1000 NS Inj 1,000 ML @ 70 mls/hr IV. 1000 / 1000 CONT .[id number] [facility] Rx#:[id number] Other: # Voids 3 Date of Last Bowel Movement 04/21/18 # Bowel Movements 0 Narrative: awaek alert lhp nad Objective Laboratory Results - last 24 hr 04/20/18 04/20/18 04/20/18 03:23 05:21 12:50 ESR POC Glucose 141 H Hemoglobin A1c 6.6 H Vitamin B12 TSH Free T4 Nasal Screen MRSA (PCR) Not detected 04/20/18 04/20/18 04/20/18 14:36 14:36 17:10 ESR 40 H POC Glucose 154 H Hemoglobin A1c Vitamin B12 349 TSH 1.400 Free T4 1.06 Nasal Screen MRSA (PCR) 04/20/18 04/21/18 20:25 07:40 ESR POC Glucose 195 H 154 H Hemoglobin A1c Vitamin B12 TSH Free T4 Nasal Screen MRSA (PCR) Review/Management - Review/Management Plan: imp r medullary infarct prob small vessel on plavix and statin echo nl r vert dom actualy left small ? r mca dz check cta and keep ivf on today to flush out contrast ok for bp to 120-130/ esr mild in 40
[2018-04-21] MEDS: Insulin NovoLOG Aspart Correctional Sugar Inj SQ SCH ×2 (08:33→14:38)
--- NOTE | 2018-04-21 13:33 | CT ---
EXAM DATE: 04/21/2018 1:29 PM EST AGE/SEX: 62 years / Male INDICATIONS: Weakness on left side CLINICAL DATA: This is the patient's initial encounter. Patient reports that signs and symptoms have been present for 3 days and indicates a pain score of 1/10. MEDICAL/SURGICAL HISTORY: Hypertension. Diabetes. None. RADIATION DOSE: 32.66 CTDI (mGy) COMPARISON: [facility] – [place], CT HEAD W/O CONTRAST, 04/19/2018. . TECHNIQUE: CT of the head without contrast. Using automated exposure control and adjustment of the mA and/or kV according to patient size, radiation dose was kept as low as reasonably achievable to ob tain optimal diagnostic quality images. DICOM format image data is available electronically for revi ew and comparison. FINDINGS: Cerebrum: The ventricles are normal for age. No evidence of midline shift, mass lesion, hemorrhage or acute infarction. No extraaxial fluid collections are seen. Posterior Fossa: The cerebellum and brainstem are intact. The 4th ventricle is midline. The cerebe llopontine angle is unremarkable. Extracranial: The visualized portion of the orbits is intact. Skull: The calvaria is intact. No evidence of skull fracture. CONCLUSION: 1. Negative noncontrast head CT. . Electronically signed by: Arvin Ordoñez MD Board Certified Radiologist 04/21/2018 1:31 PM EST
--- NOTE | 2018-04-21 14:29 | CT ---
EXAM DATE: 04/21/2018 2:23 PM EST AGE/SEX: 62 years / Male INDICATIONS: Left side weakness CLINICAL DATA: This is the patient's initial encounter. Patient reports that signs and symptoms have been present for 1 day and indicates a pain score of 1/10. MEDICAL/SURGICAL HISTORY: Diabetes. Hypertension. . RADIATION DOSE: 25.40 CTDI (mGy) COMPARISON: [facility] – [place], [place] HEAD W/O CONTRAST, 04/21/2018. . TECHNIQUE: Volumetric scanning was performed using a multi-row detector CT scanner during bolus infu andriy of 73 ml Omnipaque 350 (iohexol) nonionic water-soluble contrast as a single exam dose. The d [place] was post processed with a variety of visualization algorithms including full volume maximum inten sity projection, multi-planar sliding thin slab reformation, curved planar reformation, and surface r endering techniques. Using automated exposure control and adjustment of the mA and/or kV according t o patient size, radiation dose was kept as low as reasonably achievable to obtain optimal diagnostic quality images. DICOM format image data is available electronically for review and comparison. FINDINGS: There is excellent visualization of the major intracranial arteries out to the second-order branch ve ssels. There is no evidence for aneurysm, vessel truncation or stenosis, and no evidence for vascula r malformation. CONCLUSION: 1. Negative CTA Head. 2. No evidence of significant steno-occlusive disease, filling defects, aneurysm or vasculopathy. . Electronically signed by: Faheem Ferreira MD Board Certified Radiologist 04/21/2018 2:28 PM EST
--- NOTE | 2018-04-22 16:25 | HM ---
Date Performed: 04/20/2018 Time Performed: 16:15:00 HOOKUP DATE: 04/20/18 04:15:00 PM Wed ANALYSIS START TIME: 04/20/2018 4:20:00 PM ANALYSIS END TIME: 04/21/2018 3:35:29 PM PATIENT AGE: 62 PATIENT HEIGHT PATIENT WEIGHT DRUG LIST PATIENT DIAGNOSIS: BRAINSTEM INFARCT TEST NARRATIVE: The patient's average heart rate was 75 BPM. No episodes of tachycardia wer e noted. No episodes of bradycardia were noted. No pauses exceeding 2.0 seconds were noted. 4 ventricular ectopics, which represented < 1% of the total beat count, were noted. The highest vent ricular ectopic frequency occurred from 05:00 AM to 06:00 AM [place]. During this time 2 VE(s) occurred. Ventricular ectopics were observed as 4 isolated beat(s) only. No couplets or runs were noted. 5126 supraventricular ectopics, which represented 5% of the total beat count, were noted. The highe st supraventricular ectopic frequency occurred from 04:00 AM to 05:00 AM [place]. During this time 1376 SVE(s) occurred. No episodes of ST depression (defined as -1.0 mm or more) were noted in channel 1. No episodes of ST depression (defined as -1.0 mm or more) were noted in channel 2. No episodes o f ST depression (defined as -1.0 mm or more) were noted in channel 3. TEST INTERPRETATION: Benign Holter monitoring. Signed by : Bulmaro Castrejon
[2018-04-25 03:51] LABS: DS DNA Ab (Crithidia) NEGATIVE (NEGATIVE)
== END 2018-04-21 16:50 | disposition home or self-care (01) ==
LOC: NEPC 16:50 → NEDA 23:45 → N03 04-20 03:08
PROVIDERS: ADMIT Hospitalist; ATTEND Hospitalist